=== PATIENT | female | born 1960 | race Caucasian/White ===

== ENCOUNTER → 2016-09-26 | Outpatient (CLI) | payer BC ==
[~2016-09-26] MED LIST: ASPI81CH CHEW; CANA1TAB2 PO; CONJ1TAB PO; DULA10IN SQ; MULT-65 PO; VITA10004 PO; VITA100064 PO
--- NOTE | 2016-09-26 16:43 | EKG ---
Date Performed: 09/26/2016 Time Performed: 10:29:12 PTAGE: 56 years EKG: Sinus rhythm Since previous tracing, no significant change noted NORMAL ECG PREVIOUS TRACING : 06/23/2015 10.59 DOCTOR: Lilian Galvez Interpretating Date/Time 09/26/2016 17:14:59
== END ==
LOC: CPRE 09:55
PROVIDERS: ATTEND Obstetrics & Gynecology
DX: Z01.810 Encounter for preprocedural cardiovascular examination (principal); N92.0 Excessive and frequent menstruation with regular cycle
CPT/HCPCS: 93005

== ENCOUNTER → 2016-09-28 | Day surgery (SDC) | payer BC ==
--- NOTE | 2016-09-26 10:27 | MH ---
cc: SHIRA SALINAS DATE OF ADMISSION 09/28/2016 CHIEF COMPLAINT Persistent dysplasia and concern about potential cervical cancer, desire for LAVH. BSO will be added due to menopause. HISTORY OF PRESENT ILLNESS The patient is a pleasant 56-year-old white female para 2 with intact pelvis who has been undergoing multiple evaluations for dysplasia and HPV and not clearing the virus or the dysplasia. She desires definitive therapy. She understands the risks, benefits, expectations and the recovery period. She has no recent colds or infection. She is not having any postmenopausal bleeding. She does not smoke, drink or use illicit drugs. Her only previous surgeries were section and she is concerned about adhesions around the uterus. She does not do well under general anesthesia having had a colonoscopy with severe nausea afterwards. PAST MEDICAL HISTORY Her past medical history is significant for: 1. Diabetes. Her last hemoglobin A1c was 9. She is on Trulicity and another diabetic medication and she also takes Duavee for hormone therapy. 2. 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 PHYSICAL EXAM On physical exam, she is 143, her height is 5 foot 6, her BMI is 23.1. Her blood pressure is 118/64. NECK: She has no thyromegaly. LUNGS: Clear. HEART: Rate and rhythm are regular. BREASTS: Without dominant mass, nipple discharge or skin retraction. ABDOMEN: Scaphoid. No hepatosplenomegaly. No CVA tenderness. No masses or waves. PELVIC: Perineum is not overly atrophic. Vault is elevated cervix is nulliparous. Uterus is small, mobile, nontender. Ovaries are not palpable. Guaiac is negative with no hemorrhoids noted. IMPRESSION Impression at this point is a 56-year-old menopausal female with persistent dysplasia, desirous of definitive therapy in the form of an LAVH BSO. The risks, benefits, expectations with minimally invasive versus open procedures have been discussed. We talked about continued observation. She has reasonable expectations, signed consents and is scheduled for . MD RACHEL Means/TRINA /10:13 AM /10:18 AM
[~2016-09-28] VITALS: Ht 162.6 cm; Wt 65.8 kg
[~2016-09-28] MED LIST changes: +CHLORHEXIDINE GLUCONATE 2 % 1 PACK (2 CLOTHS) TOPICAL PRN; +INSULIN HUMAN REGULAR 1,000 UNITS/10 ML VIAL SQ PRN; +LACTATED RINGER'S 1000 ML IV PRN; +METOPROLOL TARTRATE 25 MG TAB PO PRN; +POVIDONE IODINE 5% (ANTISEPSIS KIT) 4 APPLICATIONS EACH NARE PRN; +SODIUM CHLORID 0.9% 500 ML IV PRN; +ceFAZolin 2 GM PREMIX 50 ML IV SCH
[2016-09-28 05:55] VITALS: BP 118/78; PULSE 92; RESP 18; TEMP 97.8; O2SAT 98
== END | disposition home or self-care (01) ==
LOC: HSDC 05:05
PROVIDERS: ATTEND Obstetrics & Gynecology
DX: N87.9 Dysplasia of cervix uteri, unspecified (principal); Z78.0 Asymptomatic menopausal state; E11.9 Type 2 diabetes mellitus without complications; Z79.84 Long term (current) use of oral hypoglycemic drugs; R82.79 Other abnormal findings on microbiological examination of urine; Z53.09 Procedure and treatment not carried out because of other contraindication
CPT/HCPCS: 82948; 99211; J0690; J7120; G0463

== ENCOUNTER 2016-10-02 07:00 | Observation (INO) | payer BC ==
[~2016-10-02] VITALS: Ht 162.6 cm; Wt 66.6 kg
[~2016-10-02 07:00] MED LIST changes: -ASPI81CH CHEW; -CHLORHEXIDINE GLUCONATE 2 % 1 PACK (2 CLOTHS) TOPICAL PRN; -INSULIN HUMAN REGULAR 1,000 UNITS/10 ML VIAL SQ PRN; -LACTATED RINGER'S 1000 ML IV PRN; -METOPROLOL TARTRATE 25 MG TAB PO PRN; -POVIDONE IODINE 5% (ANTISEPSIS KIT) 4 APPLICATIONS EACH NARE PRN; -SODIUM CHLORID 0.9% 500 ML IV PRN; -ceFAZolin 2 GM PREMIX 50 ML IV SCH
[2016-10-02] MEDS ORDERED: INSULIN HUMAN REGULAR 1,000 UNITS/10 ML VIAL SQ PRN (07:45)
[2016-10-02] MEDS ORDERED: LACTATED RINGER'S 1000 ML IV PRN (07:45)
[2016-10-02] MEDS ORDERED: POVIDONE IODINE 5% (ANTISEPSIS KIT) 4 APPLICATIONS EACH NARE PRN (07:45)
[2016-10-02] MEDS ORDERED: SODIUM CHLORID 0.9% 500 ML IV PRN (07:45)
[2016-10-02] MEDS ORDERED: CHLORHEXIDINE GLUCONATE 2 % 1 PACK (2 CLOTHS) TOPICAL PRN (07:45)
[2016-10-02] MEDS ORDERED: ceFAZolin 1,000 MG/NS 100 ML IV SCH ×2 (07:45)
[2016-10-02] MEDS ORDERED: METOPROLOL TARTRATE 25 MG TAB PO PRN (07:45)
[2016-10-02] MEDS ORDERED: ASPI81CH CHEW (07:49)
[2016-10-02 07:53] VITALS: BP 113/70; PULSE 78; RESP 16; TEMP 97.7; O2SAT 98
[2016-10-02 08:16] LABS: BLOOD, URINE NEG (NEG); COMMENT (UR) CULTURE INDICATED; CULTURE IF INDICATED CULTURE INDICATED; GLUCOSE,URINE 1000 mg/dL (NEG); KETONE, URINE TRACE mg/dL (NEG); MUCUS URINE FEW /lpf (OCC); NITRITE,URINE NEG (NEG); SQUAMOUS EPITHELIAL CELL URINE 2 /hpf (0-5); URINE COLOR YELLOW (YELLW/STRAW)
[2016-10-02] MEDS ORDERED: SODIUM CHLORIDE 0.9% 20 ML VIAL ONE (08:43)
[2016-10-02] MEDS ORDERED: VASOPRESSIN INJ 20 UNITS/ML VIAL ONE (08:43)
[2016-10-02] MEDS ORDERED: APREPITANT 40 MG CAP ONE (08:49)
[2016-10-02] MEDS ORDERED: FAMOTIDINE 20 MG/2 ML VIAL ONE (08:49)
[2016-10-02] MEDS ORDERED: MIDAZOLAM HCL 2 MG/2 ML VIAL ONE (08:49)
[2016-10-02] MEDS ORDERED: SCOPOLAMINE 1.5 MG PATCH ONE (08:57)
[2016-10-02] MEDS ORDERED: ACETAMINOPHEN 1000 MG/100 ML VIAL IV ONE (08:59)
[2016-10-02] MEDS ORDERED: BUPIVACAINE/EPINEPHRINE 0.25% 50 ML VIAL INFIL ONE (09:59)
[2016-10-02] MEDS ORDERED: NEOSTIGMINE 3 MG/3 ML SYR IV ONE (12:00)
[2016-10-02] MEDS ORDERED: PROPOFOL 200 MG/20 ML AMP IV ONE (12:00)
[2016-10-02] MEDS ORDERED: ONDANSETRON HCL 4 MG/2 ML VIAL IV PUSH ONE (12:00)
[2016-10-02] MEDS ORDERED: LACTATED RINGER'S 1000 ML INJ 1,000 ML IV ONE (12:01)
[2016-10-02] MEDS: LACTATED RINGER'S 1000 ML INJ 1,000 ML IV SCH ×2 (12:24→20:54)
[2016-10-02] MEDS ORDERED: LORazepam 0.5 MG TAB PO PRN (12:30)
[2016-10-02] MEDS ORDERED: diphenhydrAMINE HCL 25 MG CAP PO PRN (12:30)
[2016-10-02] MEDS ORDERED: ONDANSETRON HCL 4 MG/2 ML VIAL IVP PRN (12:30)
[2016-10-02] MEDS ORDERED: HYDROmorphone HCL PF 1 MG/ML VIAL IVP PRN (12:30)
[2016-10-02] MEDS ORDERED: ZOLPIDEM TARTRATE 5 MG TAB PO PRN (12:30)
[2016-10-02] MEDS ORDERED: SODIUM CHLORIDE 0.9% FLUSH 10 ML FLUSH IV FLUSH PRN (12:30)
[2016-10-02] MEDS ORDERED: fentaNYL CITRATE 250 MCG/5 ML AMP ONE (12:49)
[2016-10-02] MEDS ORDERED: *morphine SULFATE 8 MG/ML PERIprocedure ONLY ONE ×2 (12:59→13:10)
[2016-10-02] MEDS ORDERED: DO NOT ADM ANY ANTICOAGULANT DRUGS PRN (13:00)
[2016-10-02 14:30] VITALS: BP 99/62; PULSE 92; RESP 24; TEMP 97.3; O2SAT 94
[2016-10-02 16:00] VITALS: BP 117/68; PULSE 96; RESP 18; TEMP 97.4; O2SAT 97
[2016-10-02] MEDS: IBUPROFEN 600 MG TAB PO PRN (16:28)
[2016-10-02] MEDS: oxyCODONE/ACETAMINOPHEN 5 MG/325 MG TAB PO PRN ×2 (18:14→22:37)
[2016-10-02] MEDS: SODIUM CHLORIDE 0.9% FLUSH 10 ML FLUSH IV FLUSH SCH (20:54)
[2016-10-02 21:37] VITALS: BP 101/56; PULSE 91; RESP 20; TEMP 98.3; O2SAT 96
[2016-10-02 22:16] VITALS: O2SAT 96
[2016-10-03 00:46] VITALS: BP 92/58; PULSE 77; RESP 16; TEMP 96.5; O2SAT 97
[2016-10-03] MEDS: LACTATED RINGER'S 1000 ML INJ 1,000 ML IV SCH (04:33)
[2016-10-03] MEDS: IBUPROFEN 600 MG TAB PO PRN ×2 (04:33→11:10)
[2016-10-03] MEDS: oxyCODONE/ACETAMINOPHEN 5 MG/325 MG TAB PO PRN ×2 (04:36→09:55)
[2016-10-03 06:31] VITALS: BP 91/54; PULSE 79; RESP 16; TEMP 96.3; O2SAT 97
[2016-10-03 08:00] VITALS: BP 90/60; PULSE 79; RESP 20; TEMP 97.7; O2SAT 93
[2016-10-03] MEDS: SODIUM CHLORIDE 0.9% FLUSH 10 ML FLUSH IV FLUSH SCH (08:08)
[2016-10-03 08:11] LABS: AUTOMATED NEUTROPHIL # 5.8 TH/MM3 (1.8-7.7); BASOPHIL % 0.5 % (0.0-2.0); EOSINOPHIL % 0.5 % (0.0-4.0); HEMATOCRIT 34.1 % (35.0-46.0); HEMO FLAGS DIFF FINAL; LYMPH % 24.8 % (9.0-44.0); LYMPHOCYTE # 2.1 TH/MM3 (1.0-4.8); MEAN CORPUSCULAR HEMOGLOBIN 29.1 PG (27.0-34.0); MEAN CORPUSCULAR HGB CONC 33.9 % (32.0-36.0); MONO % 7.2 % (0.0-8.0); PLATELET COUNT 226 TH/MM3 (150-450); RED BLOOD COUNT 3.96 MIL/MM3 (4.00-5.30); WHITE BLOOD COUNT 8.6 TH/MM3 (4.0-11.0)
--- NOTE | 2016-10-03 08:13 | PD.OP ---
Operative Report Date of Surgery: Oct 02, 2016 Preoperative Diagnosis: persistent dysplasia Postoperative Diagnosis: same adhesions Procedure: LAVHBSO enterocele cystoscopy Anesthesia: GET Surgeon: Gilda Britton Mercury Recoverer(s): neisha Peters MS 3, Zakia Alcala MS4 Operation and Findings: Gilda Sanchez MD Oct 03, 2016 08:13
--- NOTE | 2016-10-03 08:14 | HHI.PR ---
Subjective Remarks Doing well, pain is well controlled, eating well. catheter out has not voided yet eating well mild pain Objective Vital Signs Vital Signs Date Time Temp Pulse Resp B/P Pulse Ox O2 Delivery O2 Flow Rate FiO2 10/03/16 06:31 96.3 79 16 91/54 97 10/03/16 00:46 92/58 10/03/16 00:46 96.5 77 16 97 10/02/16 22:16 96 Nasal Cannula 2.00 10/02/16 21:37 98.3 91 20 101/56 96 10/02/16 16:00 97.4 96 18 117/68 97 10/02/16 14:30 97.3 92 24 99/62 94 10/02/16 13:30 87 18 111/69 98 Nasal Cannula 2 10/02/16 13:15 81 22 104/62 97 Nasal Cannula 2 10/02/16 13:00 85 22 121/68 98 Nasal Cannula 2 10/02/16 12:45 90 23 122/67 96 Nasal Cannula 2 10/02/16 12:42 99.3 93 23 134/71 96 Nasal Cannula 2 I/O 10/02/16 10/02/16 10/02/16 10/03/16 10/03/16 10/03/16 07:00 15:00 23:00 07:00 15:00 23:00 Intake Total 1500 ml 1910 ml Output Total 900 ml 800 ml 1230 ml Balance 600 ml 1110 ml -1230 ml Intake Oral 1910 ml Other 1500 ml Output Urine Total 700 ml 800 ml 1230 ml Estimated Blood Loss 200 ml Objective Remarks Chest is clear, regular rate and rhythm. Abdomen is soft and non-distended. Incisions clean and dry. perineum dry Ext no CCE. A/P Assessment and Plan Post Op Day 1 Doing well Home today and return to office in two weeks. Gilda Britton MD Oct 03, 2016 08:14
--- NOTE | 2016-10-03 08:16 | HHI.DCPOC ---
Discharge Care Plan Report Symptoms to Your Doctor -Temperature above 100.5 degrees -Redness, of incision or excessive or foul smelling drainage -Unusual pain or calf pain -Increased vaginal bleeding -Painful or difficulty urinating -Feelings of extreme sadness or anxiety after 2 weeks Goals to Promote Your Health * To prevent worsening of your condition and complications * To maintain your health at the optimal level Directions to Meet Your Goals Take your medications as prescribed Follow your dietary instruction Follow activity as directed Ensure plenty of rest for recovery Drink fluids for hydration Keep your appointments as scheduled Take your immunizations and boosters as scheduled If your symptoms worsen call your PCP, if no PCP go to Urgent Care Center or Emergency Room Smoking is Dangerous to Your Health. Avoid second hand smoke Call the 24-hour crisis hotline for domestic abuse at Gilda Britton MD Oct 03, 2016 08:16
[2016-10-03 08:40] LABS: BICARBONATE 31.4 MEQ/L (21.0-32.0); POTASSIUM 3.8 MEQ/L (3.5-5.1)
[2016-10-03 10:08] VITALS: O2SAT 93
[2016-10-03] MEDS ORDERED: DOCUSATE SODIUM 100 MG CAP PO ONE (10:30)
[2016-10-03] MEDS ORDERED: POLYETHYLENE GLYCOL 17 GM PKG PO ONE (10:30)
[2016-10-03 11:47] VITALS: BP 90/55; PULSE 79; RESP 18; TEMP 96.5; O2SAT 96
--- NOTE | 2016-10-04 22:19 | MP ---
cc: SHIRA SALINAS DATE OF SURGERY 10/02/16 DATE OF 1960 PREOPERATIVE DIAGNOSIS Persistent HPV and dysplasia. POSTOPERATIVE DIAGNOSIS Persistent HPV and dysplasia. PROCEDURE Laparoscopically assisted vaginal hysterectomy and bilateral salpingo-oophorectomy, enterocele obliteration, cystourethroscopy. SURGEON Colt Salinas MD RESPIRATORY THERAPY AIDE Gavi Alcala, fourth year medical student Gavi Peters, third year medical student FINDINGS Examination under anesthesia revealed a mildly enlarged but mobile uterus with small ovaries. A mild cystocele was noted. Of interest is that last she had a very significant E. Coli infection and her surgery was rescheduled for today. She has been given Ancef and had taken Macrobid and today still has some white cells in her urine and a couple of red cells. Upon entering the peritoneal cavity, liver edge was normal. Bowel was normal. Uterus is minimally enlarged. Both tubes were unremarkable. The right ovary was normal. The left one had some significant adhesions to the bowel and sidewall. The lower uterine segment was densely adhered to the bladder and a space of was diminished. This did require a very tedious dissection both laparoscopically and vaginally, but once the uterus was removed and the enterocele obliterated, the cuff was closed. Repeat laparoscopic evaluation showed minimal bleeding from one and edge, but otherwise unremarkable peritoneal cavity and cystourethroscopy revealed normal flow from both ureteral orifices. No suture and no iatrogenic injury. There was some irritation noted at the posterior portion of the bladder which may be subtle and of no consequence, but I do think I will have her see a urologist subsequent to recovery. Sponge, instrument, needle count are correct. She tolerated the procedure well. PROCEDURE IN DETAIL The patient was taken to the operating room after her consent was reviewed in the holding. She was placed under general endotracheal anesthesia. she was prepped and draped in the usual sterile fashion in the dorsal lithotomy position. Pelvic Exam was performed. A Hartman catheter was placed. She had sequential stockings on. She had received 1 gram of Ancef and a time-out was performed. A 5 mm incision was made in the umbilicus and the trocar and sleeve were placed under direct visualization and 2 liters of CO2 were instilled. A 5 mm incision was made in the right and left lower quadrants with transillumination and infiltration with lidocaine and subsequent trocar and sleeve were placed. Systematic evaluation of the abdominal and pelvic contents was performed and the right round ligament was transected and the anterior leaf of the broad ligament was taken off the lower uterine segment with considerable difficulty due to scarring. The right tube was gently placed on traction and the infundibulopelvic ligament was transected and subsequent pedicles were taken down to the level of the round ligament and the broad ligament from that point was taken down as carefully as possible. This was repeated on the left side, although additional adhesions needed to be taken of the tube and ovary off the small bowel and sidewall. The round ligament on that side when transected was then the point of entry into the broad ligament, but again the dissection was very, very difficult and we were careful to avoid iatrogenic injury to the bladder. Eventually, we got close to the uterosacrals and decision was made to go from below. From below, the cervix was grasped, placed on tension infiltrated with Pitressin and circumcised with a Bovie on cutting. The posterior cul-de-sac was entered sharply. The anterior cul-de-sac was not entered until several pedicles on either side were obtained due to difficulty in finding the plane and extreme care and concern about entering the bladder. Once it was possible to reach from behind the uterus and identify where the bladder ended and the cervix began, an incision was made that was into the space of Retzius and subsequent pedicles were clamped, cut, suture ligated and the uterus, tubes and ovaries removed. At this point, the enterocele was repaired with a running suture and then the uterosacrals were plicated and then the vaginal cuff was closed in a running interlocking vertical fashion. Attention was redirected to the abdomen. Pneumoperitoneum was reinstilled. Irrigation was performed. A couple areas of oozing on the peritoneum were rendered hemostatic and Emily was placed, then a cystoscopy was done with the laparoscope filling the bladder with the suction electric stove installer and ureteral flow from both orifices was easily seen. There was no iatrogenic injury. There was no suture or holes. I was concerned about the degree to which along the posterior wall there was what looked like mild elevation of the bladder mucosa and irritation. Pictures were taken, but they were very fuzzy. I do plan on having her see a urologist when her healing is completed. Sponge, instrument, needle count were correct. She tolerated the procedure well and went to the recovery room stable. MD RACHEL Means/ /3:17 PM /10:06 PM
== END 2016-10-03 12:02 | disposition home or self-care (01) ==
LOC: HSDC 07:00 → HSDI 12:27 → HOCB 13:55
PROVIDERS: ADMIT Obstetrics & Gynecology; ATTEND Obstetrics & Gynecology
DX: N87.9 Dysplasia of cervix uteri, unspecified (principal); A63.0 Anogenital (venereal) warts; N84.0 Polyp of corpus uteri; D25.9 Leiomyoma of uterus, unspecified; N81.10 Cystocele, unspecified; K66.0 Peritoneal adhesions (postprocedural) (postinfection); N81.5 Vaginal enterocele; E11.9 Type 2 diabetes mellitus without complications; Z87.891 Personal history of nicotine dependence
CPT/HCPCS: 00944; 58552; 80048; 81001; 82948; 85025; 86850; 86900; 86901; 87086; 88307; G0378; J0131; J0690; J1170; J2250; J2270; J2405; J2710; J3010; J7120; J8501